=== PATIENT | male | born 1940 | race Hispanic/Latino ===

== ENCOUNTER 2017-12-16 16:42 | Emergency (ER) | payer OTHER, MEDICARE ==
[~2017-12-16 16:42] MED LIST: BACL10TA PO; NAPR-1023 PO; PRAV40TA3 PO; TRAM50TA4 PO
[2017-12-16] MEDS ORDERED: ACETAMINOPHEN EXTRA STRENGTH 500 MG TABLET ONE (16:58)
== END 2017-12-16 18:26 | disposition home or self-care (01) ==
LOC: EDH 16:42
DX: S09.8XXA Other specified injuries of head, initial encounter (principal); L73.8 Other specified follicular disorders; W22.8XXA Striking against or struck by other objects, initial encounter; Y93.89 Activity, other specified; Y92.89 Other specified places as the place of occurrence of the external cause; Y99.8 Other external cause status
CPT/HCPCS: 70450

== ENCOUNTER 2019-11-26 15:21 | Emergency (ER) | payer OTHER, MEDICARE ==
[2019-11-26 15:51] LABS: BASOPHILS % (AUTO) 0.7 % (0.0-5.0); EOSINOPHILS % (AUTO) 1.9 % (0.0-8.0); HEMATOCRIT 40.3 % (42-54); LYMPHOCYTES % (AUTO) 28.9 % (21.0-51.0); MEAN CORPUSCULAR HEMOGLOBIN 30.4 pg (27.0-33.0); MEAN CORPUSCULAR HGB CONC 34.5 g/dL (32.0-36.0); MEAN CORPUSCULAR VOLUME 88.2 fL (79-99); MONOCYTES % (AUTO) 11.9 % (3.0-13.0); NEUTROPHILS % (AUTO) 56.5 % (40.0-77.0); PLATELET COUNT (AUTO) 113 K/uL (130-400); RED BLOOD CELL COUNT(AUTO) 4.57 MIL/uL (4.50-6.20); RED CELL DISTRIBUTION WIDTH 12.4 % (11.0-15.5); WHITE BLOOD COUNT (AUTO) 6.7 K/uL (4.8-10.8)
[2019-11-26 16:03] LABS: CREATININE 0.8 mg/dL (0.5-1.5)
[2019-11-26 16:06] LABS: INR 1.13 (0.85-1.15); PARTIAL THROMBOPLASTIN TIME 24.5 SEC (26.3-35.5); PROTHROMBIN TIME 12.1 SEC (9.6-11.6)
== END 2019-11-26 19:06 | disposition home or self-care (01) ==
LOC: EDH 15:21
DX: R07.89 Other chest pain (principal); F43.0 Acute stress reaction; Z79.899 Other long term (current) drug therapy
CPT/HCPCS: 36415; 71045; 80048; 84484; 85025; 85610; 85730; 93005

== ENCOUNTER 2021-07-17 22:42 | Emergency (ER) | payer OTHER, MEDICARE ==
[~2021-07-17] VITALS: Ht 180.3 cm; Wt 91.2 kg
[2021-07-17] MEDS ORDERED: ACETAMINOPHEN 500 MG TABLET PO ONE (23:00)
[2021-07-17] MEDS ORDERED: ONDA4TAB10 PO (23:25)
[2021-07-17] MEDS ORDERED: IBUP-2070 PO (23:25)
[2021-07-17] MEDS ORDERED: KETOROLAC 30MG VIAL (30MG/ML) ONE (23:33)
[2021-07-17 23:36] VITALS: BP 136/85
[2021-07-18] MEDS ORDERED: KETOROLAC 30MG VIAL (30MG/ML) IM ONE
== END 2021-07-18 00:01 | disposition home or self-care (01) ==
LOC: EDH 22:42
DX: S06.0X0A Concussion without loss of consciousness, initial encounter (principal); Z79.899 Other long term (current) drug therapy; W22.8XXA Striking against or struck by other objects, initial encounter; Y93.89 Activity, other specified; Y92.89 Other specified places as the place of occurrence of the external cause; Y99.8 Other external cause status
CPT/HCPCS: 70450; 72125; 96372; 99284; J1885

== ENCOUNTER → 2023-01-16 | Outpatient (CLI) | payer OTHER, MEDICARE ==
[~2023-01-16] MED LIST changes: +IBUP-2070 PO; +ONDA4TAB10 PO
== END | disposition home or self-care (01) ==
LOC: RAH 08:38
PROVIDERS: ATTEND Nurse Practitioner
DX: S83.242A Other tear of medial meniscus, current injury, left knee, initial encounter (principal); M71.22 Synovial cyst of popliteal space [Baker], left knee; M23.92 Unspecified internal derangement of left knee; M25.462 Effusion, left knee; X58.XXXA Exposure to other specified factors, initial encounter; Y93.89 Activity, other specified; Y92.89 Other specified places as the place of occurrence of the external cause; Y99.8 Other external cause status
CPT/HCPCS: 73721

== ENCOUNTER 2023-07-28 06:21 | Observation (INO) | payer OTHER, MEDICARE ==
[2023-07-25 10:06] VITALS: BP 128/72; PULSE 62; RESP 18
[2023-07-28] VITALS (28 sets, daily range): BP systolic 105–156; BP diastolic 50–99; PULSE 55–83; RESP 14–18; O2SAT 97–99
[~2023-07-28] VITALS: Ht 177.8 cm; Wt 89.4 kg
[~2023-07-28 06:21] MED LIST changes: +AEC81 PO; +ALBUTEROL IH; -BACL10TA PO; +BUSP10TA3 PO; +FAMO20TA8 PO; +FLUTICASONE NASAL; +GABA-529 PO; -IBUP-2070 PO; +IBUP-2077 PO; +LEVOCETIRIZINE PO; -NAPR-1023 PO; -ONDA4TAB10 PO; +SERT-439 PO; +TAMS-1 PO; -TRAM50TA4 PO; +TRAZ150T79 PO
[2023-07-28] MEDS: LACTATED RINGERS 1000ML 1,000 ML IV ONE (06:50)
[2023-07-28] MEDS ORDERED: ONDANSETRON 4MG INJ ONE (07:29)
[2023-07-28] MEDS ORDERED: ROCURONIUM BROMIDE 10MG/1ML 5ML VL ONE (07:30)
[2023-07-28] MEDS ORDERED: PROPOFOL 10 MG/ML 20ML VIAL IV ONE (07:30)
[2023-07-28] MEDS ORDERED: FENTANYL CITRATE PF 50 MCG/1 ML 2ML VIAL ONE ×2 (07:30→09:59)
[2023-07-28] MEDS ORDERED: MIDAZOLAM HCL 1 MG/ML 2ML VIAL ONE (08:04)
[2023-07-28] MEDS: CEFAZOLIN SODIUM 2 GM VIAL ONE (08:30)
[2023-07-28] MEDS: TRANEXAMIC ACID 1000MG/10ML ONE (08:40)
[2023-07-28] MEDS ORDERED: FLUT1BLS3 IH (09:15)
[2023-07-28] MEDS: KETOROLAC 30MG VIAL (30MG/ML) ONE (09:39)
[2023-07-28] MEDS: ROPIVACAINE 0.5% 5MG/ML 30ML ONE (09:39)
[2023-07-28] MEDS ORDERED: ROPIVACAINE 0.5% 5MG/ML 30ML ONE (09:50)
[2023-07-28] MEDS ORDERED: LIDOCAINE HCL-MPF 1% 5ML AMP IJ ONE (09:50)
[2023-07-28] MEDS ORDERED: GLYCOPYRROLATE 0.2 MG/ML 5 ML VIAL ONE (09:59)
[2023-07-28] MEDS ORDERED: NEOSTIGMINE METHYLSULFATE 1MG/ML IV ONE (09:59)
[2023-07-28] MEDS ORDERED: CYCLOBENZAPRINE HCL 10 MG TABLET PO PRN (10:00)
[2023-07-28] MEDS ORDERED: POTASSIUM CHLORIDE 10% ELIXIR 20 MEQ/15 ML UDCUP PO PRN (10:00)
[2023-07-28] MEDS ORDERED: ONDANSETRON 4MG INJ IVP PRN (10:00)
[2023-07-28] MEDS ORDERED: DiphenhydrAMINE HCL 50 MG/ML VIAL IVP PRN (10:00)
[2023-07-28] MEDS ORDERED: CALCIUM CARB 500MG PO PRN (10:00)
[2023-07-28] MEDS ORDERED: FERROUS FUMARATE 324 MG TABLET PO PRN (10:00)
[2023-07-28] MEDS ORDERED: KETOROLAC 15MG/ML VIAL (15MG/ML) IV PRN (10:00)
[2023-07-28] MEDS ORDERED: POTASSIUM CHLORIDE 20MEQ/100ML 100 ML IV PRN (10:00)
[2023-07-28] MEDS ORDERED: KCL 20 MEQ ERTAB PO PRN (10:00)
[2023-07-28] MEDS ORDERED: CEFAZOLIN SODIUM 2 GM VIAL IVPB SCH (10:30)
[2023-07-28] MEDS: KETOROLAC 15MG/ML VIAL (15MG/ML) ONE (11:43)
[2023-07-28] MEDS: KETOROLAC 15MG/ML VIAL (15MG/ML) IV SCH (11:43)
[2023-07-28] MEDS: 0.9%NACL 1000ML 1,000 ML IV SCH (13:15)
[2023-07-28] MEDS: GABAPENTIN 100 MG CAPSULE PO SCH (13:50)
[2023-07-28] MEDS: FLUTICASONE NASAL SCH (13:58)
[2023-07-28] MEDS: CEFAZOLIN SODIUM 2 GM VIAL IVPB SCH (17:31)
[2023-07-28] MEDS: ALBUTEROL IH SCH (21:00)
[2023-07-28] MEDS: LEVOCETIRIZINE 10 MG PO SCH (21:00)
[2023-07-28] MEDS: SERTRALINE HCL 50 MG TABLET PO SCH (22:51)
[2023-07-28] MEDS: BUSPIRONE HCL 5 MG TABLET PO SCH (22:51)
[2023-07-28] MEDS: DOCUSATE SODIUM 100 MG CAP PO SCH (22:51)
[2023-07-28] MEDS: TRAZODONE HCL 100 MG TABLET PO SCH (22:52)
[2023-07-28] MEDS: ATORVASTATIN 10 MG TABLET PO SCH (22:52)
[2023-07-28] MEDS: HYDROCODONE/ACETAMINOPHEN 5/325 MG TAB PO PRN (22:56)
[2023-07-29] VITALS (8 sets, daily range): BP systolic 119–140; BP diastolic 59–75; PULSE 54–78; RESP 17–19; O2SAT 95–98
[2023-07-29 04:25] LABS: HEMATOCRIT 34.3 % (42-54); MEAN CORPUSCULAR HEMOGLOBIN 29.9 pg (27.0-33.0); MEAN CORPUSCULAR HGB CONC 34.4 g/dL (32.0-36.0); MEAN CORPUSCULAR VOLUME 86.8 fL (79-99); RED BLOOD CELL COUNT(AUTO) 3.95 MIL/uL (4.50-6.20); RED CELL DISTRIBUTION WIDTH 12.6 % (11.0-15.5); WHITE BLOOD COUNT (AUTO) 13.1 K/uL (4.8-10.8)
[2023-07-29 04:40] LABS: CREATININE 0.8 mg/dL (0.5-1.3); POTASSIUM 3.6 mmol/L (3.5-5.1)
[2023-07-29] MEDS: VILANTER IH SCH (09:00)
[2023-07-29] MEDS: UMECLIDIN IH SCH (09:00)
[2023-07-29] MEDS: [UNRECOGNIZED DRUG - OTHER] IH SCH (09:00)
[2023-07-29] MEDS: FLUTICASONE IH SCH (09:00)
[2023-07-29] MEDS: POLYETHYLENE GLYCOL 3350 17 GM POWD.PACK PO SCH (09:04)
[2023-07-29] MEDS: TAMSULOSIN HCL 0.4 MG CAP.ER.24H PO SCH (09:05)
[2023-07-29] MEDS: ASPIRIN 325MG EC TAB PO SCH (09:05)
[2023-07-29] MEDS: TRAMADOL HCL 50 MG TABLET PO PRN (16:32)
[2023-07-30 04:07] VITALS: BP 141/76; PULSE 79; RESP 18
[2023-07-30 08:00] VITALS: BP 104/58; PULSE 75; RESP 18; O2SAT 92
[2023-07-30 11:56] VITALS: BP 132/72; PULSE 71; RESP 18
[2023-07-30] MEDS ORDERED: HYDR-4060 PO (14:46)
[2023-07-30] MEDS ORDERED: CYCL-309 PO (14:46)
[2023-07-30] MEDS ORDERED: DOCU-116 PO (14:46)
[2023-07-30] MEDS ORDERED: ASPI-891 PO (14:46)
[2023-07-31] MEDS ORDERED: BISACODYL 10 MG SUPP.RECT RC PRN (10:00)
== END 2023-07-30 16:20 ==
LOC: DAH 06:21 → DAHIP 06:22 → DAH 06:22 → 4BH 11:30
PROVIDERS: ADMIT Student in an Organized Health Care Education/Training Program; ATTEND Student in an Organized Health Care Education/Training Program
DX: M17.12 Unilateral primary osteoarthritis, left knee (principal); D62 Acute posthemorrhagic anemia; G89.18 Other acute postprocedural pain; E78.00 Pure hypercholesterolemia, unspecified; M23.204 Derangement of unspecified medial meniscus due to old tear or injury, left knee; M62.81 Muscle weakness (generalized); E78.5 Hyperlipidemia, unspecified; E11.9 Type 2 diabetes mellitus without complications; Z79.899 Other long term (current) drug therapy
CPT/HCPCS: 84134; 86140; 36415 ×2; 87641; 64447; 27447; 96376 ×2; 96365; 96375; 73560; 97161; 97116 ×5; 96366; 80048; 85027; 82948; 97530 ×7; G0378 ×50; A4663; A4215 ×2; J7120; J3010 ×2; J3490 ×4; J2250; J2704; J2405; J1885 ×4; J2710; J2795 ×2; J0690 ×3; G0168; A4649 ×2; C1713; C1776; A6255; A5120; A4223; A4213; A4222; A4221

== ENCOUNTER → 2023-09-15 | Outpatient (CLI) | payer OTHER, MEDICARE ==
[~2023-09-15] MED LIST changes: -AEC81 PO; +ASPI-891 PO; +CYCL-309 PO; +DOCU-116 PO; +FLUT1BLS3 IH; +HYDR-4060 PO
== END | disposition home or self-care (01) ==
LOC: SHCH 07:44
PROVIDERS: ATTEND Student in an Organized Health Care Education/Training Program
DX: Z01.810 Encounter for preprocedural cardiovascular examination (principal)
CPT/HCPCS: 93306

== ENCOUNTER 2023-11-23 21:53 | Emergency (ER) | payer OTHER, MEDICARE ==
[~2023-11-23] VITALS: Ht 180.3 cm; Wt 86.2 kg
[2023-11-23 22:23] LABS: BASOPHILS # (AUTO) 0.07 K/uL (0.00-0.20); BASOPHILS % (AUTO) 0.8 % (0.0-5.0); EOSINOPHILS # (AUTO) 0.35 K/uL (0.00-0.70); EOSINOPHILS % (AUTO) 4.2 % (0.0-8.0); HEMATOCRIT 42.1 % (42-54); IMMATURE GRANULOCYTE ABSOLUTE 0.03 K/uL (0-1); LYMPHOCYTES # (AUTO) 2.7 K/uL (1.0-4.8); LYMPHOCYTES % (AUTO) 32.4 % (21.0-51.0); MEAN CORPUSCULAR HGB CONC 33.7 g/dL (32.0-36.0); MEAN CORPUSCULAR VOLUME 82.9 fL (79-99); MONOCYTES # (AUTO) 0.8 K/uL (0.1-1.0); NEUTROPHILS # (AUTO) 4.3 K/uL (1.8-7.7); NEUTROPHILS % (AUTO) 52.2 % (40.0-77.0); PLATELET COUNT (AUTO) 128 K/uL (130-400); RED BLOOD CELL COUNT(AUTO) 5.08 MIL/uL (4.50-6.20); RED CELL DISTRIBUTION WIDTH 14.4 % (11.0-15.5); WHITE BLOOD COUNT (AUTO) 8.3 K/uL (4.8-10.8)
[2023-11-23 22:25] LABS: ADD UA MICROSCOPIC NO; APPEARANCE,URINE CLEAR (CLEAR); BILIRUBIN,URINE NEGATIVE (NEGATIVE); COLOR,URINE LIGHT-YELLOW (YELLOW); GLUCOSE, URINE (UA) NEGATIVE (NEGATIVE); KETONES,URINE NEGATIVE (NEGATIVE); LEUKOCYTE ESTERASE ,URINE NEGATIVE Leu/uL (NEGATIVE); NITRATE,URINE NEGATIVE (NEGATIVE); OCCULT BLOOD,URINE NEGATIVE (NEGATIVE); PROTEIN,URINE NEGATIVE (NEGATIVE); UROBILINOGEN,URINE 0.2 mg/dL (0.2-1.0)
[2023-11-23 22:38] LABS: CREATININE 1.1 mg/dL (0.5-1.3)
[2023-11-23 22:44] LABS: MAGNESIUM 1.9 mg/dL (1.80-2.40)
[2023-11-24 00:58] VITALS: BP 154/80; PULSE 61; RESP 20; TEMP 98.7; O2SAT 100
== END 2023-11-24 01:44 | disposition home or self-care (01) ==
LOC: EDH 21:53
DX: R51.9 Headache, unspecified (principal); Z79.82 Long term (current) use of aspirin; Z79.899 Other long term (current) drug therapy; Z98.890 Other specified postprocedural states
CPT/HCPCS: 36415; 70450; 71045; 80048; 81003; 82550; 83735; 85025

== ENCOUNTER → 2024-07-19 | Outpatient (CLI) | payer OTHER, MEDICARE ==
[~2024-07-19] MED LIST changes: -PRAV40TA3 PO; +PRAV40TA62 PO; -TAMS-1 PO; +TAMS-55 PO
--- NOTE | 2024-07-19 15:12 | HMCIMG ---
Exam Type: MR KNEE LEFT WO Clinical Information: PAIN L KNEE Comparison: None Findings: Routine views of the knee are without evidence of fracture, dislocation, arthritic, or inflammatory change. There is status post knee replacement with adequate visualization and alignment of bony and hardware elements. No complications are seen. Please note that the metallic artifact caused by the prosthetic elements obscures the bone prosthesis interface. There are vascular calcifications. The joint space is well maintained and there is no effusion. IMPRESSION: Status post knee replacement. Please note that the metallic artifact caused by the prosthetic elements obscures the bone prosthesis interface.
== END | disposition home or self-care (01) ==
LOC: RAH 13:23
PROVIDERS: ATTEND Internal Medicine
DX: M25.862 Other specified joint disorders, left knee (principal); Z96.652 Presence of left artificial knee joint; M25.562 Pain in left knee
CPT/HCPCS: 73721